=== PATIENT | female | born 1990 | race Caucasian/White ===

== ENCOUNTER 2017-01-11 05:36 | Inpatient (IN) | payer OTHER ==
[~2017-01-11] VITALS: Ht 160 cm; Wt 88.0 kg
[2017-01-11] VITALS (22 sets, daily range): BP systolic 111–135; BP diastolic 65–81; PULSE 86–107; RESP 16–20; TEMP 97.7–98.4; O2SAT 100
[2017-01-11] MEDS ORDERED: CITRIC ACID-SODIUM CITRATE LIQ 30 ML UDC PO SCH (05:45)
[2017-01-11] MEDS ORDERED: ceFAZolin 2 GM PREMIX 50 ML IV SCH (05:45)
[2017-01-11] MEDS ORDERED: LACTATED RINGER'S 1000 ML IV SCH (05:45)
[2017-01-11] MEDS ORDERED: LACTATED RINGER'S 1000 ML IV ONE (05:45)
[2017-01-11] MEDS ORDERED: PREN1TAB30 (06:04)
[2017-01-11] MEDS ORDERED: ZANT150T2 PO (06:04)
[2017-01-11] MEDS ORDERED: METF500T PO (06:04)
[2017-01-11 06:51] LABS: AUTOMATED NEUTROPHIL # 7.4 TH/MM3 (1.8-7.7); BASOPHIL # 0.1 TH/MM3 (0-0.2); BASOPHIL % 0.7 % (0.0-2.0); EOSINOPHIL # 0.2 TH/MM3 (0-0.4); EOSINOPHIL % 1.5 % (0.0-4.0); HEMATOCRIT 38.1 % (35.0-46.0); HEMO FLAGS DIFF FINAL; LYMPH % 28.5 % (9.0-44.0); LYMPHOCYTE # 3.4 TH/MM3 (1.0-4.8); MEAN CELL VOLUME 81.9 FL (80.0-100.0); MEAN CORPUSCULAR HEMOGLOBIN 27.3 PG (27.0-34.0); MEAN CORPUSCULAR HGB CONC 33.3 % (32.0-36.0); MONO % 6.2 % (0.0-8.0); NEUT % 63.1 % (16.0-70.0); PLATELET COUNT 323 TH/MM3 (150-450); RED BLOOD COUNT 4.66 MIL/MM3 (4.00-5.30); RED CELL DISTRIBUTION WIDTH 13.6 % (11.6-17.2); WHITE BLOOD COUNT 11.7 TH/MM3 (4.0-11.0)
[2017-01-11] MEDS ORDERED: ceFAZolin INJ 1,000 MG VIAL ONE (07:07)
[2017-01-11] MEDS ORDERED: OXYTOCIN 10 UNIT/ML AMP ONE (07:07)
[2017-01-11 07:08] LABS: BACTERIA, URINE MOD /hpf; BLOOD, URINE NEG (NEG); COMMENT (UR) CULTURE INDICATED; CULTURE IF INDICATED CULTURE INDICATED; GLUCOSE,URINE NEG (NEG); KETONE, URINE NEG (NEG); MUCUS URINE MANY /lpf (OCC); NITRITE,URINE NEG (NEG); SQUAMOUS EPITHELIAL CELL URINE 18 /hpf (0-5); URINE COLOR YELLOW (YELLW/STRAW)
[2017-01-11] MEDS ORDERED: ONDANSETRON HCL 4 MG/2 ML VIAL IV PUSH ONE (07:20)
[2017-01-11 07:51] LABS: AMPHETAMINE, URINE NEG (NEG); BARBITURATES, URINE NEG (NEG); COCAINE, URINE NEG (NEG)
--- NOTE | 2017-01-11 08:10 | PD.OB.DELI ---
Procedure Note Section Procedure Pre Op Diagnosis IUP at 36+ wks, breech, oligohydramnios Post Op Diagnosis: Post Op Diagnosis same Performed by Carla Comer Procedure: Primary Low Transverse Sec Informed consent obtained: For procedure Confirmed correct: Time-out taken Anesthesia: Spinal Urinary catheter: Inserted using sterile technique Sterile preparation: Duraprep Position: Supine with wedge to right side Operative Features Skin Incision: Pfannenstiel Uterine Incision: Low transverse w/knife / scissors Membranes Ruptured: Artificially Presentation: Breech : Female One Minute : 7 Five Minute : 7 Status of infant: Viable Placenta delivered: Intact Medications: Antibiotics, Oxytocin Estimated blood loss: 600cc Procedure tolerated: Well Maternal Condition: Stable Carla Comer MD Jan 11, 2017 08:10
[2017-01-11] MEDS ORDERED: OXYTOCIN 30 UNITS-500ML PREMIX 500 ML IV ONE (08:15)
[2017-01-11] MEDS ORDERED: SODIUM CHLORIDE 0.9% FLUSH 10 ML FLUSH IV FLUSH PRN (08:15)
[2017-01-11] MEDS ORDERED: ZOLPIDEM TARTRATE 5 MG TAB PO PRN (08:15)
[2017-01-11] MEDS ORDERED: SIMETHICONE 80 MG CHEWABLE TAB PO PRN (08:15)
[2017-01-11] MEDS ORDERED: ONDANSETRON HCL 4 MG/2 ML VIAL IV PUSH PRN (08:15)
[2017-01-11] MEDS ORDERED: ACETAMINOPHEN 325 MG TAB PO PRN (08:15)
[2017-01-11] MEDS ORDERED: ACETAMINOPHEN 1000 MG/100 ML VIAL IV ONE (08:16)
[2017-01-11] MEDS ORDERED: MORPHINE SULFATE PF 5 MG/10 ML VIAL ONE (08:16)
[2017-01-11] MEDS ORDERED: OXYTOCIN 30 UNITS-500ML PREMIX 500 ML ONE (08:36)
--- NOTE | 2017-01-11 08:41 | MP ---
cc: OMAR MERCER DATE OF SURGERY 01/11/2017 PREOPERATIVE DIAGNOSIS Intrauterine at 36+ weeks, oligohydramnios, breech presentation. POSTOPERATIVE DIAGNOSIS Intrauterine at 36+ weeks, oligohydramnios, breech presentation. PROCEDURE Primary lower segment transverse section via Pfannenstiel skin incision. SURGEON Dr. Mercer ANESTHESIA Spinal, Dr. Siddiqi FLUIDS 2200 cc crystalloid ESTIMATED BLOOD LOSS 600 cc URINE OUTPUT 50 cc clear yellow at the end of the procedure. FINDINGS A live female was delivered breech presentation, sacrum anterior. 's were 7 at one and 7 at five minutes. PROCEDURE The patient was taken to the operating room where spinal anesthesia was found to be adequate. She was then prepped and draped in the normal sterile fashion in the dorsal supine position with a leftward tilt. A Pfannenstiel skin incision was made with a scalpel and carried down to the underlying layer of fascia. The fascia was nicked in the midline. The incision was extended laterally with curved Thornton scissors. Attention was turned to the inferior aspect of this incision which was grasped with Rosangela clamps, elevated and the rectus muscles dissected off sharply. Attention was turned to the superior aspect of the incision which was grasped with Rosangela clamps, elevated and the rectus muscles dissected off sharply. The rectus muscles were in the midline. The peritoneum was identified, grasped between two Marybeth clamps, elevated and entered sharply with Metzenbaum scissors. This incision was extended superiorly and inferiorly with good visualization of the bladder. The bladder blade was inserted. The vesicouterine peritoneum was identified, grasped with pickups and entered sharply with Metzenbaum scissors. This incision was extended laterally and the bladder flap created digitally. The lower uterine segment was then incised in a transverse fashion with a scalpel. The incision was extended laterally with bandage scissors. The amniotic fluid was ruptured noted to be clear. The breech was then identified, delivered sacrum anterior, estelle breech. The shoulders delivered atraumatically. The oral and nasopharynx were bulb suctioned with a syringe. The cord was clamped x2 and cut. The infant was handed off to the awaiting nurse. The placenta was delivered manually and sent for donation. The uterus was cleared of all clots and debris. The uterine incision was repaired in two layers with one Vicryl. Hemostasis was assured. 3-0 chromic was used to over sew the incision in the midline for hemostasis. The gutters were cleared of all clots and debris. The fascia incision was repaired in a running fashion with 0 Vicryl. The skin was closed with radha. A pressure dressing was applied. The sponge, lap, needle and instrument counts were correct x3. The patient was transferred to the recovery room in stable condition. MD CHIP Nowak/VIANNEY /8:10 AM /8:31 AM
[2017-01-11] MEDS ORDERED: SODIUM CHLORIDE 0.9% FLUSH 10 ML FLUSH IV FLUSH SCH (09:00)
[2017-01-11] MEDS ORDERED: METOCLOPRAMIDE HCL 10 MG/2 ML VIAL ONE (09:17)
[2017-01-11] MEDS ORDERED: METOCLOPRAMIDE HCL 10 MG/2 ML VIAL IV ONE (09:45)
[2017-01-11] MEDS: PROMETHAZINE INJ 25 MG/ML VIAL IM PRN (11:42)
--- NOTE | 2017-01-11 12:09 | MH ---
cc: OMAR MERCER DATE OF ADMISSION: 01/11/2017 She is 26-year-old, 2, para 0-0-1-0, intrauterine at 36+ weeks, breech presentation, oligohydramnios. care has been in [place] with the [facility]. She transferred here two weeks ago. care was positive only for group B strep in her urine. PAST OB HISTORY Significant for one SAB PAST GYNECOLOGIC HISTORY She had a LEEP in 2008. PAST MEDICAL HISTORY She denies hypertension, diabetes or asthma. She has a history of PCOS PAST SURGICAL HISTORY 1. LEEP 2. Breast augmentation 3. Upper endoscopy for reflux MEDICATIONS 1. Metformin 500 mg daily. 2. vitamins. ALLERGIES No known drug allergies. PHYSICAL EXAMINATION VITAL SIGNS: Stable. She is afebrile. HEAD, HEART, CHEST, LUNGS: Within normal limits. ABDOMEN: Soft, nontender, gravid. PELVIC: Exam was deferred. EXTREMITIES: No edema, cyanosis or clubbing. ASSESSMENT/PLAN She is a 26-year-old 2, para 0 intrauterine at 36+ weeks, breech oligohydramnios. She has been counseled as to risks, benefits, alternatives of a primary section. Her questions have been answered. MD CHIP Nowak/ /4:27 PM /11:59 AM
[2017-01-11] MEDS ORDERED: LACTATED RINGER'S 1000 ML INJ 1,000 ML IV SCH (13:07)
[2017-01-11] MEDS ORDERED: OXYTOCIN 30 UNITS-500ML PREMIX 500 ML IV PRN (18:15)
[2017-01-11] MEDS: IBUPROFEN 600 MG TAB PO PRN (21:22)
[2017-01-12 00:37] VITALS: BP 124/74; PULSE 90; RESP 16; TEMP 98.5
[2017-01-12] MEDS: oxyCODONE/ACETAMINOPHEN 5 MG/325 MG TAB PO PRN ×5 (00:43→23:32)
[2017-01-12] MEDS: PROMETHAZINE INJ 25 MG/ML VIAL IM PRN (00:44)
[2017-01-12 04:20] VITALS: BP 117/66; PULSE 76; RESP 16; TEMP 98.3
[2017-01-12] MEDS: IBUPROFEN 600 MG TAB PO PRN ×4 (04:38→23:31)
[2017-01-12 07:07] LABS: AUTOMATED NEUTROPHIL # 9.6 TH/MM3 (1.8-7.7); BASOPHIL # 0.1 TH/MM3 (0-0.2); BASOPHIL % 0.6 % (0.0-2.0); EOSINOPHIL # 0.2 TH/MM3 (0-0.4); EOSINOPHIL % 1.3 % (0.0-4.0); HEMATOCRIT 28.6 % (35.0-46.0); HEMO FLAGS DIFF FINAL; LYMPH % 24.6 % (9.0-44.0); LYMPHOCYTE # 3.6 TH/MM3 (1.0-4.8); MEAN CELL VOLUME 82.1 FL (80.0-100.0); MEAN CORPUSCULAR HGB CONC 32.9 % (32.0-36.0); NEUT % 66.5 % (16.0-70.0); PLATELET COUNT 269 TH/MM3 (150-450); RED BLOOD COUNT 3.49 MIL/MM3 (4.00-5.30); RED CELL DISTRIBUTION WIDTH 13.6 % (11.6-17.2); WHITE BLOOD COUNT 14.5 TH/MM3 (4.0-11.0)
[2017-01-12 08:00] VITALS: BP 103/67; PULSE 85; RESP 18; TEMP 97.5
--- NOTE | 2017-01-12 10:12 | HHI.OB ---
Subjective Post Operative Day: 1 Remarks s/p primary LTCD for breech & oligo at 36w2d Objective Vitals/I&O Vital Signs Date Time Temp Pulse Resp B/P Pulse Ox O2 Delivery O2 Flow Rate FiO2 01/12/17 08:00 97.5 85 18 103/67 01/12/17 04:20 98.3 76 16 117/66 01/12/17 00:37 98.5 16 01/12/17 00:37 98.5 16 01/12/17 00:37 90 124/74 01/11/17 20:15 86 16 111/69 01/11/17 20:15 98.1 01/11/17 17:00 98.4 99 18 127/73 01/11/17 11:45 97.7 01/11/17 11:45 94 117/75 Result Diagram: 01/12/17 0647 Objective Remarks GENERAL: Well-nourished, well-developed patient. CARDIOVASCULAR: Regular rate and rhythm without murmurs, gallops, or rubs. RESPIRATORY: Breath sounds equal bilaterally. No accessory muscle use. ABDOMEN/GI: Abdomen soft, non-tender, bowel sounds present. Incision: dressing Clean, dry and intact. Fundus: Firm, non-tender at umbilicus. GENITOURINARY: Light bleeding. EXTREMITIES: No cyanosis or edema, non-tender, without signs of DVT. Medications and IVs Current Medications Medications (Trade) Dose Ordered Sig/Prabhakar Route Start Time Stop Time Status Last Admin (NS Flush) 2 ml BID IV FLUSH 01/11/17 09:00 (NS Flush) 2 ml UNSCH PRN IV FLUSH 01/11/17 08:15 (Mylicon Chew) 80 mg QID PRN PO 01/11/17 08:15 (Tylenol) 650 mg Q6H PRN PO 01/11/17 08:15 (Motrin) 600 mg Q6H PRN PO 01/11/17 08:15 01/12/17 04:38 (Percocet 5-325 Mg) 1 tab Q4H PRN PO 01/11/17 08:15 01/12/17 04:39 (Percocet 5-325 Mg) 2 tab Q4H PRN PO 01/11/17 08:15 (Elyse-Colace) 2 tab Q12H PRN PO 01/11/17 08:15 (Ambien) 5 mg HS PRN PO 01/11/17 08:15 (M-M-R Ii Inj) 0.5 ml ONCE ONCE SQ 01/12/17 16:00 01/12/17 16:01 (Boostrix Inj) 0.5 ml ONCE ONCE IM 01/12/17 16:00 01/12/17 16:01 (Zofran Inj) 4 mg Q6H PRN IV PUSH 01/11/17 08:15 (Phenergan Inj) 25 mg Q4H PRN IM 01/11/17 11:45 01/12/17 00:44 Assessment/Plan Problem List: (1) S/P primary low transverse (2) Oligohydramnios delivered (3) Breech presentation at Assessment and Plan POD#1 routine supportive care pumping, in NICU for prematurity/respiratory distress (5#13oz) routine d/c planning for POD#3 shower, ambulate, remove bandage today Discharge Planning routine, POD#3 Lynda Henderson MD Jan 12, 2017 10:12
[2017-01-12] MEDS ORDERED: IBUP-232 PO (10:13)
[2017-01-12] MEDS ORDERED: SENN1TAB PO (10:13)
[2017-01-12] MEDS ORDERED: OXYC1TAB63 PO (10:13)
--- NOTE | 2017-01-12 10:14 | HHI.DCPOC ---
Discharge Care Plan Diagnosis: (1) S/P primary low transverse Your Health Problems Are: delivery Report Symptoms to Your Doctor -Temperature above 100.5 degrees -Redness, of incision or excessive or foul smelling drainage -Unusual pain or calf pain -Increased vaginal bleeding -Painful or difficulty urinating -Feelings of extreme sadness or anxiety after 2 weeks Goals to Promote Your Health * To prevent worsening of your condition and complications * To maintain your health at the optimal level Directions to Meet Your Goals Take your medications as prescribed Follow your dietary instruction Follow activity as directed Ensure plenty of rest for recovery Drink fluids for hydration Keep your appointments as scheduled Take your immunizations and boosters as scheduled If your symptoms worsen call your PCP, if no PCP go to Urgent Care Center or Emergency Room Smoking is Dangerous to Your Health. Avoid second hand smoke Call the 24-hour crisis hotline for domestic abuse at Lynda Henderson MD Jan 12, 2017 10:14
[2017-01-12] MEDS: DOCUSATE SODIUM 50 MG/SENNA 8.6 MG TAB PO PRN ×2 (10:15→23:31)
[2017-01-12] MEDS ORDERED: DIPHTH/TETANUS/ACEL PERTUSSIS (BOOSTER) 0.5 ML VIAL/PFS IM ONE (16:00)
[2017-01-12] MEDS ORDERED: MEASLES, MUMPS, RUBELLA VACCINE 0.5 ML VIAL SQ ONE (16:00)
[2017-01-12 19:53] VITALS: BP 105/62; PULSE 91; RESP 16; TEMP 98
[2017-01-13] MEDS: oxyCODONE/ACETAMINOPHEN 5 MG/325 MG TAB PO PRN ×3 (07:17→20:08)
[2017-01-13] MEDS: IBUPROFEN 600 MG TAB PO PRN ×3 (07:17→20:08)
[2017-01-13 07:20] VITALS: BP 106/75; PULSE 84; RESP 16; TEMP 98.3
--- NOTE | 2017-01-13 08:50 | HHI.OB ---
Subjective Post Operative Day: 2 Objective Vitals/I&O Vital Signs Date Time Temp Pulse Resp B/P Pulse Ox O2 Delivery O2 Flow Rate FiO2 01/13/17 07:20 98.3 84 16 106/75 01/12/17 19:53 98.0 91 16 01/12/17 19:53 105/62 Result Diagram: 01/12/17 0647 Objective Remarks GENERAL: Well-nourished, well-developed patient. CARDIOVASCULAR: Regular rate and rhythm without murmurs, gallops, or rubs. RESPIRATORY: Breath sounds equal bilaterally. No accessory muscle use. ABDOMEN/GI: Abdomen soft, non-tender, bowel sounds present. Incision: Clean & intact. radha in place. small area of oozing at center , not active now Fundus: Firm, non-tender at umbilicus. GENITOURINARY: Light bleeding. EXTREMITIES: No cyanosis or edema, non-tender, without signs of DVT. Medications and IVs Current Medications Medications (Trade) Dose Ordered Sig/Prabhakar Route Start Time Stop Time Status Last Admin (NS Flush) 2 ml BID IV FLUSH 01/11/17 09:00 (NS Flush) 2 ml UNSCH PRN IV FLUSH 01/11/17 08:15 (Mylicon Chew) 80 mg QID PRN PO 01/11/17 08:15 (Tylenol) 650 mg Q6H PRN PO 01/11/17 08:15 (Motrin) 600 mg Q6H PRN PO 01/11/17 08:15 01/13/17 07:17 (Percocet 5-325 Mg) 1 tab Q4H PRN PO 01/11/17 08:15 01/12/17 16:14 (Percocet 5-325 Mg) 2 tab Q4H PRN PO 01/11/17 08:15 01/13/17 07:17 (Elyse-Colace) 2 tab Q12H PRN PO 01/11/17 08:15 01/12/17 23:31 (Ambien) 5 mg HS PRN PO 01/11/17 08:15 (Zofran Inj) 4 mg Q6H PRN IV PUSH 01/11/17 08:15 (Phenergan Inj) 25 mg Q4H PRN IM 01/11/17 11:45 8/5/17 00:44 Assessment/Plan Problem List: (1) S/P primary low transverse (2) Oligohydramnios delivered (3) Breech presentation at Assessment and Plan POD#2 routine supportive care pumping, infant in NICU for prematurity/respiratory distress (5#13oz) routine d/c planning for POD#3 encourage keep bandage in place if ambulating up to NICU, ok to have open to air when resting in bed; will remove radha tmrw & plan steri-strips Discharge Planning routine, POD#3 Lynda Henderson MD Jan 13, 2017 08:49
[2017-01-13] MEDS: DOCUSATE SODIUM 50 MG/SENNA 8.6 MG TAB PO PRN (11:17)
[2017-01-13] MEDS ORDERED: BISACODYL 10 MG SUPP RECTAL PRN (13:15)
[2017-01-13 15:40] VITALS: BP 102/69; PULSE 55; RESP 16; TEMP 97.5
[2017-01-13 19:39] VITALS: BP 123/71; PULSE 93; RESP 18; TEMP 98.3
[2017-01-14] MEDS: IBUPROFEN 600 MG TAB PO PRN ×2 (02:42→09:38)
[2017-01-14] MEDS: oxyCODONE/ACETAMINOPHEN 5 MG/325 MG TAB PO PRN ×2 (02:43→09:38)
--- NOTE | 2017-01-14 07:19 | HHI.OB ---
Subjective Post Operative Day: 3 Remarks Pt ding better today. Ambulating, eating, phyllis po. voiding without difficulty. Objective Vitals/I&O Vital Signs Date Time Temp Pulse Resp B/P Pulse Ox O2 Delivery O2 Flow Rate FiO2 01/13/17 19:39 93 123/71 01/13/17 19:39 98.3 18 01/13/17 15:40 97.5 01/13/17 15:40 102/69 01/13/17 15:40 55 16 01/13/17 07:20 98.3 84 16 106/75 Result Diagram: 01/12/17 0647 Objective Remarks GENERAL: Well-nourished, well-developed patient. CARDIOVASCULAR: Regular rate and rhythm without murmurs, gallops, or rubs. RESPIRATORY: Breath sounds equal bilaterally. No accessory muscle use. ABDOMEN/GI: Abdomen soft, non-tender, bowel sounds present. Incision: Clean & intact. radha removed and steri-strips in place Fundus: Firm, non-tender at umbilicus. GENITOURINARY: Light bleeding. EXTREMITIES: No cyanosis or edema, non-tender, without signs of DVT. Medications and IVs Current Medications Medications (Trade) Dose Ordered Sig/Prabhakar Route Start Time Stop Time Status Last Admin (NS Flush) 2 ml BID IV FLUSH 01/11/17 09:00 (NS Flush) 2 ml UNSCH PRN IV FLUSH 01/11/17 08:15 (Mylicon Chew) 80 mg QID PRN PO 01/11/17 08:15 01/13/17 20:08 (Tylenol) 650 mg Q6H PRN PO 01/11/17 08:15 (Motrin) 600 mg Q6H PRN PO 01/11/17 08:15 01/14/17 02:42 (Percocet 5-325 Mg) 1 tab Q4H PRN PO 01/11/17 08:15 01/14/17 02:43 (Percocet 5-325 Mg) 2 tab Q4H PRN PO 01/11/17 08:15 01/13/17 07:17 (Elyse-Colace) 2 tab Q12H PRN PO 01/11/17 08:15 01/13/17 11:17 (Ambien) 5 mg HS PRN PO 01/11/17 08:15 (Zofran Inj) 4 mg Q6H PRN IV PUSH 01/11/17 08:15 (Phenergan Inj) 25 mg Q4H PRN IM 01/11/17 11:45 01/12/17 00:44 (Dulcolax Supp) 10 mg DAILY PRN RECTAL 01/13/17 13:15 01/13/17 13:14 Assessment/Plan Problem List: (1) S/P primary low transverse (2) Oligohydramnios delivered (3) Breech presentation at Assessment and Plan POD#3 routine supportive care pumping, in NICU for prematurity/respiratory distress (5#13oz) routine d/c planning for POD#3 Discharge Planning routine, POD#3 Twila Lopez MD Jan 14, 2017 07:19
[2017-01-14 09:00] VITALS: BP 118/77; PULSE 96; RESP 16; TEMP 98.6
[2017-01-14] MEDS: DOCUSATE SODIUM 50 MG/SENNA 8.6 MG TAB PO PRN (09:38)
== END 2017-01-14 13:35 | disposition home or self-care (01) | DRG 766 ==
LOC: H2EB 05:36 → H1EA 09:55
PROVIDERS: ADMIT Obstetrics & Gynecology; ATTEND Obstetrics & Gynecology
PROC: 10D00Z1 Extraction of Products of Conception, Low, Open Approach (ICD-10-PCS; principal; 2017-01-11)
DX: O32.1XX0 Maternal care for breech presentation, not applicable or unspecified (principal); E28.2 Polycystic ovarian syndrome; O41.00X0 Oligohydramnios, unspecified trimester, not applicable or unspecified; O99.824 Streptococcus B carrier state complicating childbirth; O34.83 Maternal care for other abnormalities of pelvic organs, third trimester; Z37.0 Single live birth
CPT/HCPCS: 59025; 76815; 80307; 81001; 85025; 86850; 86900; 86901; 87086; G0481; J0131; J0690; J2274; J2405; J2550; J2590; J2765; J7120